=== PATIENT | female | born 1970 | race Caucasian/White ===

== ENCOUNTER 2021-03-25 17:17 | Emergency (ER) | payer SELFPAY ==
--- NOTE | ~2021-03-25 | XR_ITS ---
EXAMINATION: XR hand RT min 3V DATE: 03/25/2021 18:13 INDICATION: Pain and swelling at the fifth metacarpal post fall TECHNIQUE: Posteroanterior, 2 oblique and lateral views of the right hand were obtained. COMPARISON: Right wrist radiographs dated 12/30/2008 FINDINGS: Transverse extra articular fracture at the neck of the right fifth metacarpal with 40 degrees palmar/ radial angulation. No other fractures identified. 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 IMPRESSION: 1. Boxer fracture at the neck of the right fifth metacarpal with 40 degree palmar/radial angulation. Reviewed, dictated and finalized at location A. MIZ[facility] CONSULTANT IMPRESSION: 1. Boxer fracture at the neck of the right fifth metacarpal with 40 degree palm ar/radial angulation.
[2021-03-25 17:28] VITALS: BP 129/71; PULSE 67; RESP 16; TEMP 37; O2SAT 100
--- NOTE | 2021-03-25 18:00 | PC.NURSE ---
Dr. Camacho at bedside.
--- NOTE | 2021-03-25 18:07 | PC.NURSE ---
Patient transported to Radiology.
--- NOTE | 2021-03-25 18:08 | ED.UPPEXIN ---
HPI - Extremity Injury (Upper) General Chief Complaint: Extremity Injury, Upper Stated Complaint: hand pain Time Seen by Provider: 03/25/21 17:58 Source: patient Mode of arrival: ambulatory Limitations: no limitations History of Present Illness HPI narrative: Patient is 51 years old white female complaining of right hand pain after ground fall. Patient denies other injuries. Related Data Allergies Allergy/AdvReac Type Severity Reaction Status Date / Time No Known Allergies Allergy Mild Verified 12/09/09 14:30 Review of Systems Review of Systems: CONSTITUTIONAL: Denies fever, chills, or sweats. EYES: Denies visual changes, redness, or discharge. ENT: Denies rhinorrhea, congestion, sore throat, or otalgia. CARDIOVASCULAR: Denies chest pain, palpitations, or edema. RESPIRATORY: Denies cough or dyspnea. GASTROINTESTINAL: Denies abdominal pain, nausea, vomiting, or diarrhea. GENITOURINARY: Denies dysuria or hematuria. SKIN: Denies rash or itching. MUSCULOSKELETAL: Denies back pain, joint pain, or myalgia. NEUROLOGIC: Denies headache, numbness, or weakness. PSYCHIATRIC: Denies anxiety or depression. Exam Narrative: General appearance: Well-developed, well-nourished Skin: Normal color Head: Normocephalic, nontraumatic Neck: Supple, nontender Chest and respiratory: Airway patent, no respiratory distress, no accessory muscle use Heart: Regular rate/rhythm Abdomen: Soft, nontender, no organomegaly, quiet bowel sounds Vascular: Normal peripheral pulses, normal capillary refill. Musculoskeletal: Right hand showed diffuse swelling and tenderness medially and dorsally with bruises, positive deformity Neurologic: Alert and oriented ?3, CARDIAC NURSE is normal as tested, no gross motor deficit Course Course Emergency Course: Stable Vital Signs Vital signs: Vital Signs Temperature 37.0 C 03/25/21 17:28 Pulse Rate 67 03/25/21 17:28 Respiratory Rate 16 03/25/21 17:28 Blood Pressure 129/71 03/25/21 17:28 Pulse Oximetry 100 03/25/21 17:28 Temperature 37.0 C 03/25/21 17:28 Pulse Rate 67 03/25/21 17:28 Respiratory Rate 16 03/25/21 17:28 Blood Pressure 129/71 03/25/21 17:28 Pulse Oximetry 100 03/25/21 17:28 MDM - Extremity Injury (Upper) Imaging Data Radiologist's impression: Impressions Hand X-Ray 03/25/21 18:42 IMPRESSION: 1. Boxer fracture at the neck of the right fifth metacarpal with 40 degree palmar/radial angulation. Critical Care Time Critical Care Time Critical Care Time: No Discharge Plan Discharge Clinical Impression: Boxer's fracture Patient Disposition: Home, Self-Care Condition: Stable Instructions: Antibiotic Form, How to Use a Sling (ED), Splint Care (ED), Boxer Fracture (ED) Additional Instructions: Return if symptoms are worsening , call Dr. Hanna for appointment, take ibuprofen as as needed for aches and pain, continue home medications. Prescriptions: New hydrocodone-acetaminophen 5-325 mg tablet 1 tablet PO Q4H Qty: 20 RF: 0 Follow-up/Referrals: Nahum Guidry M.D. [Primary Care Provider] - Ryan Hanna MD [Physician] - 03/26/21
--- NOTE | 2021-03-25 18:45 | PC.NURSE ---
Patient resting in stretcher. Call light within reach. Awaiting lab results.
--- NOTE | 2021-03-25 19:13 | PC.NURSE ---
blank driller at bedside to apply splint to right wrist.
[2021-03-25 19:25] VITALS: BP 127/73; PULSE 78; RESP 18; O2SAT 98
== END 2021-03-25 19:29 | disposition home or self-care (01) ==
PROVIDERS: Emergency Provider Emergency Medicine; PCP Family Medicine
DX: S62.336A Displaced fracture of neck of fifth metacarpal bone, right hand, initial encounter for closed fracture (principal); W19.XXXA Unspecified fall, initial encounter
CPT/HCPCS: 29125; 73130; 99284; A4565

== ENCOUNTER 2024-12-05 21:35 | Emergency (ER) | payer SELFPAY ==
--- NOTE | 2024-12-05 21:44 | PC.NURSE ---
Pt ambulated to triage stating she is going to leave and come back later. This RN encouraged pt to wait to see a provider and instructed pt to go to the nearest ED if symptoms worsen as well as the process will restart. Pt verbalized an understanding.
== END 2024-12-05 21:44 | disposition left against medical advice (07) ==
LOC: ANHED 22:42
PROVIDERS: PCP Family Medicine
DX: Z53.21 Procedure and treatment not carried out due to patient leaving prior to being seen by health care provider (principal)
CPT/HCPCS: 99199

== ENCOUNTER 2024-12-05 22:44 | Emergency (ER) | payer SELFPAY ==
--- OUTSIDE RECORDS SUMMARY | 2024-12-05 22:47 | XMS_ITS | Clinical Summary ---
Author Organization [facility] Address [address] [place] [address] Care Team Providers Care Setup Technician Name Role Phone Nahum Guidry MD Primary Care Provider [phone]- [phone] Source Comments [facility],non-owned Affiliates and Associated Physician Practices is amultiple site organization consisting of ambulatory clinics and hospital sitesin [place] and [place]. This disclosure is being madepursuant to the Care Everywhere program and may not contain all information available regarding this patient. Last updated 17.[employer] [facility] Allergies No known active allergies Medications * Be aware that medications may not be up to date on this document. Alwaysverify current medications with the patient. 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 Gender Identity Not on file Sexual Orientation Not on file Last Filed Vital Signs Vital Sign Reading Time Taken Comments Blood Pressure - - Pulse - - Temperature - - Respiratory Rate - - Oxygen Saturation - - Inhaled Oxygen Concentration - - Weight 68 kg (150 lb) 04/07/2021 11:08 AM MANAGER EMPLOYEE RELATIONS Height 170.2 cm (5' 7) 04/07/2021 11:08 AM MANAGER EMPLOYEE RELATIONS Body Mass Index 23.49 04/07/2021 11:08 AM MANAGER EMPLOYEE RELATIONS Plan of Treatment Health Maintenance Due Date Last Done Comments COLOGUARD (AGES 45-75) - COL ON CA SCREENING 1969 COLON MONITORING 1969 COLONOSCOPY - COLON CA SCREENING 1969 CT COLONOGRAPHY - COLON CA SCREENING 1969 Colorectal Cancer Screening 1969 FIT - COLON CA SCREENING 1969 FLEX SIG - COLON CA SCREENING 1969 LIPID TESTING 1969 MAMMOGRAM 1969 HIV SCREENING 1984 HEPATITIS C SCREENING 03/12/1987 DTAP/TDAP/TD VACCINES (1 - Tdap) 1988 HEPATITIS B VACCINE (1 of 3 - 19+ 3-dose series) 1988 PNEUMOCOCCAL VACCINE 50+ (1 of 1 - PCV) 2019 ZOSTER VACCINE (1 of 2) 2019 DEPRESSION SCREENING 02/08/2024 COVID-19 VACCINE (1 - 2023-2 5 season) 2024 INFLUENZA VACCINE (#1) 2024 HIB VACCINE Aged Out No longer eligi ble based on patient's age to complete this topic HPV VACCINE Aged Out No longer eligi ble based on patient's age to complete this topic MENINGOCOCCAL (Group B) VACC INE SHARED DECISION-MAKING Aged Out No longer eligibl e based on patient's age to complete this topic MENINGOCOCCAL GROUPS A/C/Y/W VACCINE Aged Out No longer eligible b ased on patient's age to complete this topic Insurance [facility] MEDICAID - [place] Care Teams Setup Technician Relationship Specialty Start Date End Date Nahum Guidry MD [address] [place] [phone] PCP - General 04/03/21
--- OUTSIDE RECORDS SUMMARY | 2024-12-05 22:47 | XMS_ITS | Clinical Summary ---
Author Organization [facility] Address [address] [place] [id number] Care Team Providers Care Hookman Name Role Phone Unavailable Primary Care Provider Unavailabl e Social History Tobacco Use Types Packs/Day Years Used Date Smoking Tobacco: Never Assessed Comments Unknown Sex and Gender Information Value Date Recorded Sex Assigned at Not on file Legal Sex Female 5:53 PM CLIENT EXECUTIVE Gender Identity Not on file Sexual Orientation Not on file Plan of Treatment Health Maintenance Due Date Last Done Comments Cervical Cancer Screening Pa p Smear (Age 30 to 64) Every 3 Years 1969 Colorectal Cancer Screening Colonoscopy (10 Years) 1969 Annual Physical 1972 Hepatitis C 1987 DTaP, Tdap and Td Vaccines ( 1 - Tdap) 1988 Hepatitis B Vaccines (1 of 3 - 19+ 3-dose series) 1988 Cervical Cancer Screening Pa p with HPV Testing (Age 30 to 64) Every 5 Years 1999 Cervical Cancer Screening with HPV 1999 Mammogram Screening 2009 Pneumococcal Vaccine: 50+ Ye ars (1 of 1 - PCV) 2019 Zoster Vaccines (1 of 2) 2019 COVID-19 Vaccine ( - 2024-2 6 season) 2024 Influenza Adult (#1) 2024 Hepatitis A Vaccines Aged Out No long er eligible based on patient's age to complete this topic Meningococcal B Vaccine Aged Out No l onger eligible based on patient's age to complete this topic Meningococcal Vaccine Aged Out No cecilio natalie eligible based on patient's age to complete this topic RSV Immunizations Under 20 Months Aged Out No longer eligible based on patient's age to complete this topic
[2024-12-05 22:59] VITALS: BP 138/63; PULSE 76; RESP 14; TEMP 36.4; O2SAT 98
--- NOTE | 2024-12-06 01:15 | PC.NURSE ---
Pt was triaged and again, left without being seen by a provider.
--- OUTSIDE RECORDS SUMMARY | 2024-12-06 01:18 | XMS_ITS | Clinical Summary ---
Author Organization [facility] Address [address] [place] [address] Care Team Providers Care Injection Molding Operator Name Role Phone Nahum Guidry MD Primary Care Provider [phone]- [phone] Source Comments [facility],non-owned Affiliates and Associated Physician Practices is amultiple site organization consisting of ambulatory clinics and hospital sitesin [place], [place], [place] and [place]. This disclosure is being madepursuant to the Care Everywhere program and may not contain all information available regarding this patient. 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 Gender Identity Not on file Sexual Orientation Not on file Last Filed Vital Signs Vital Sign Reading Time Taken Comments Blood Pressure - - Pulse - - Temperature - - Respiratory Rate - - Oxygen Saturation - - Inhaled Oxygen Concentration - - Weight 68 kg (150 lb) 04/07/2021 11:08 AM ENGINEERING TECHNOLOGIST Height 170.2 cm (5' 7) 04/07/2021 11:08 AM ENGINEERING TECHNOLOGIST Body Mass Index 23.49 04/07/2021 11:08 AM ENGINEERING TECHNOLOGIST Plan of Treatment Health Maintenance Due Date [...] patient's age to complete this topic Insurance [facility] MED[place] - [place] Care Teams Injection Molding Operator Relationship Specialty Start Date End Date Nahum Guidry MD [address] [place] [phone] PCP - General 04/03/21
== END 2024-12-06 01:15 | disposition left against medical advice (07) ==
PROVIDERS: PCP Family Medicine
DX: K08.89 Other specified disorders of teeth and supporting structures (principal)
CPT/HCPCS: 99199